=== PATIENT | female | born 1985 | race Caucasian/White ===

== ENCOUNTER → 2018-01-26 11:50 | Outpatient (CLI) | payer OTHER, SELFPAY ==
[2018-01-26 13:30] LABS: TSH w/ Reflex to FT4 < 0.02 uIU/mL (0.47-4.68)
[2018-01-26 15:01] LABS: Free T4, Direct Thyroxine 2.62 ng/dL (0.78-2.19)
== END ==
PROVIDERS: PCP Family Medicine; Visit Provider Registered Nurse
DX: E03.9 Hypothyroidism, unspecified (principal)
CPT/HCPCS: 36415; 84439; 84443

== ENCOUNTER → 2018-03-24 09:31 | Outpatient (CLI) | payer OTHER, SELFPAY ==
[2018-03-24 13:28] LABS: Thyroid Stimulating Hormone < 0.02 uIU/mL (0.47-4.68)
== END ==
PROVIDERS: PCP Family Medicine; Visit Provider Registered Nurse
DX: E03.9 Hypothyroidism, unspecified (principal)
CPT/HCPCS: 36415; 84443

== ENCOUNTER → 2018-05-30 13:53 | Outpatient (CLI) | payer OTHER, SELFPAY ==
[2018-05-30 17:41] LABS: Thyroid Stimulating Hormone 3.96 uIU/mL (0.47-4.68)
== END ==
PROVIDERS: Registered Nurse; PCP Family Medicine; Visit Provider Family Medicine
DX: E03.9 Hypothyroidism, unspecified (principal)
CPT/HCPCS: 36415; 84443

== ENCOUNTER → 2020-03-24 11:28 | Outpatient (CLI) | payer OTHER, SELFPAY ==
[2020-03-24 12:35] LABS: Alanine Aminotransferase 19 IU/L (<35); Albumin 4.3 g/dL (3.5-5.0); Albumin Globulin Ratio 1.5 (1.0-2.8); Alkaline Phosphatase 51 U/L (38-126); Aspartate Aminotransferase 27 IU/L (14-36); BUN Creatinine Ratio 21.5 (6-22); Bilirubin Total 0.5 mg/dL (0.2-1.3); Blood Urea Nitrogen 17 mg/dL (7-17); Calcium 9.1 mg/dL (8.4-10.2); Carbon Dioxide 30 mmol/L (22-32); Chloride 102 mmol/L (98-107); Cholesterol 150 mg/dL (140-199); Estimated Glomerular Filt Rate > 60.0 mL/min (>60); Globulin 2.8 g/dL (1.7-4.1); Glucose 98 mg/dL (70-100); HDL Cholesterol 79 mg/dL (40-60); HEMOLYSIS < 15 (0-50); LDL Cholesterol Calculated 55 mg/dL (<100); Potassium 3.7 mmol/L (3.4-5.1); Sodium 135 mmol/L (137-145); Total Protein 7.1 g/dL (6.3-8.2); Triglycerides 80 mg/dL (35-150)
[2020-03-24 12:48] LABS: Follicle Stimulating Hormone 5.96 mIU/mL
[2020-03-24 12:52] LABS: Free T4, Direct Thyroxine 0.96 ng/dL (0.78-2.19)
[2020-03-24 13:06] LABS: Thyroid Stimulating Hormone 6.54 uIU/mL (0.47-4.68)
[2020-03-27 08:36] LABS: Estrogen 257 pg/mL (.)
== END ==
PROVIDERS: PCP Family Medicine; Referring Provider Family Medicine; Visit Provider Family Medicine
DX: E03.9 Hypothyroidism, unspecified (principal); N92.6 Irregular menstruation, unspecified; Z13.220 Encounter for screening for lipoid disorders; Z76.89 Persons encountering health services in other specified circumstances
CPT/HCPCS: 36415; 80053; 80061; 82672; 83001; 83002; 84439; 84443

== ENCOUNTER → 2020-05-27 17:00 | Outpatient (CLI) | payer OTHER, SELFPAY ==
[2020-05-27 18:41] LABS: Free T4, Direct Thyroxine 1.05 ng/dL (0.78-2.19)
[2020-05-27 18:56] LABS: Thyroid Stimulating Hormone 2.89 uIU/mL (0.47-4.68)
== END ==
PROVIDERS: PCP Family Medicine; Referring Provider Obstetrics & Gynecology; Visit Provider Obstetrics & Gynecology
DX: E03.9 Hypothyroidism, unspecified (principal)
CPT/HCPCS: 36415; 84439; 84443

== ENCOUNTER 2020-07-28 12:02 | Emergency (ER) | payer OTHER, SELFPAY ==
[2020-07-28 12:05] VITALS: BP 128/80; PULSE 72; RESP 18; TEMP 36.9; O2SAT 97; BMI 23.6
--- NOTE | 2020-07-28 12:09 | DI.RAD.S_ITS ---
PROCEDURE: XR CHEST 1V INDICATIONS: chest pain TECHNIQUE: One view of the chest was acquired. COMPARISON: None. FINDINGS: Surgical changes and devices: None. Lungs and pleura: Lungs are clear. No pleural effusions or pneumothorax. Mediastinum: Mediastinal contours appear normal. Heart size is normal. Bones and chest wall: No suspicious bony lesions. Overlying soft tissues appear unremarkable. IMPRESSION: Portable chest within normal limits. Dictated by: Nick Montemayor M.D. on 07/28/2020 at 11:20 Approved by: Nick Montemayor M.D. on 07/28/2020 at 11:20
[2020-07-28 12:28] VITALS: PULSE 64; O2SAT 100
[2020-07-28 12:30] VITALS: BP 99/63; PULSE 57; O2SAT 100
[2020-07-28 13:03] LABS: INR 1.1 (0.9-1.3); Prothrombin Time 12.1 SECONDS (10.1-12.7)
[2020-07-28 13:06] LABS: PTT Partial Thromboplastin Tim 31 SECONDS (26.4-36.2)
[2020-07-28 13:07] LABS: Alanine Aminotransferase 19 IU/L (<35); Albumin 4.5 g/dL (3.5-5.0); Albumin Globulin Ratio 1.4 (1.0-2.8); Alkaline Phosphatase 54 U/L (38-126); Aspartate Aminotransferase 31 IU/L (14-36); BUN Creatinine Ratio 19.3 (6-22); Bilirubin Total 0.5 mg/dL (0.2-1.3); Blood Urea Nitrogen 16 mg/dL (7-17); Calcium 9.9 mg/dL (8.4-10.2); Carbon Dioxide 27 mmol/L (22-32); Chloride 102 mmol/L (98-107); Creatine Kinase 116 U/L (30-135); Estimated Glomerular Filt Rate > 60.0 mL/min (>60); Globulin 3.2 g/dL (1.7-4.1); Glucose 101 mg/dL (70-100); HEMOLYSIS < 15 (0-50); Lipase 50 U/L (23-300); Magnesium 2.1 mg/dL (1.6-2.3); Potassium 4.2 mmol/L (3.4-5.1); Sodium 136 mmol/L (137-145); Total Protein 7.7 g/dL (6.3-8.2)
[2020-07-28 13:10] LABS: Add Manual Diff / Slide Review NO; Basophils Absolute Auto 0 /uL (0-100); Basophils Percent Auto 0.4 % (0-2); Eosinophils Absolute Auto 100 /uL (0-450); Eosinophils Percent Auto 2.5 % (2-4); Hematocrit 41.9 % (36-46); Hemoglobin 14.1 g/dL (12.0-16.0); Lymphocytes Absolute Auto 1300 /uL (1100-4500); Lymphocytes Percent Auto 30.4 % (25-40); Mean Corpuscular HGB Conc 33.7 % (30-36); Mean Corpuscular Hemoglobin 31.4 PG (26-34); Mean Corpuscular Volume 93.1 fL (80-100); Monocytes Absolute Auto 300 /uL (0-900); Monocytes Percent Auto 7.7 % (3-14); Neutrophils Absolute Auto 2500 /uL (1500-7000); Platelet Count 226 X10^3/uL (150-400); Red Cell Distribution Width 12.6 % (11.6-14.8); White Blood Cell Count 4.2 X10^3/uL (4.5-11.0)
[2020-07-28 13:19] LABS: Troponin I < 0.012 ng/mL (0.01-0.034)
[2020-07-28 13:22] LABS: Creatine Kinase MB 1.15 ng/mL (<2.37)
[2020-07-28 13:38] LABS: TSH w/ Reflex to FT4 1.91 uIU/mL (0.47-4.68)
[2020-07-28 13:49] LABS: D Dimer < 200 ng/mL (<230)
[2020-07-28 13:57] VITALS: BP 103/62; PULSE 60; RESP 16; O2SAT 99
--- NOTE | 2020-07-28 14:46 | ED_ITS ---
HPI - Chest Pain <KIMBER Meza - Last Filed: 07/28/20 22:05> General Chief Complaint: Chest Pain Stated Complaint: FAINT, HEAVINESS IN CHEST Time Seen by Provider: 07/28/20 13:10 Source: patient Mode of arrival: Ambulatory Limitations: no limitations History of Present Illness HPI narrative: This is a pleasant 34 year female, nonsmoker, has past medical history significant for hypothyroidism, anxiety presents to ED with chief complain of heart issues. Patient reports she has been feeling heart fluttering and feeling like passing out with chest heaviness and some shortn ess of breath. This symptoms occur occasionally at home and easily when she is sitting on a car driving. Patient states does not have chest pain with this symptoms. Patient has anxiety and recently start on escitalopram 10mg daily last 2 weeks. Patient denies recent surgery, prolonged bed rest, taking hormone replacement. 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 Mother has history of DVT which caused pulmonary embolism. Patient reports she usually runs in low blood pressure and is concerned for abnormal glucose level. Patient states her father and uncle had cardiac bypass surgery in 60's but they were heavy drinker and smoker. LMP [address] Edouard. Related Data Home Medications Medication Instructions Recorded Confirmed albuterol sulfate 90 mcg/actuation 1 puff INHALATION Q6H PRN 01/26/18 07/08/20 aerosol inhaler cetirizine 10 mg tablet 10 mg PO DAILY 01/26/18 07/08/20 Previous Rx's Medication Instructions Recorded clindamycin phosphate 1 % lotion 1 applic TOPICAL BID #60 ml 03/24/20 epinephrine 0.3 mg/0.3 mL 0.3 mg IM ONCE #2 ea 03/24/20 injection, auto-injector levothyroxine 50 mcg tablet 50 mcg PO DAILY #90 tab 03/24/20 oxyquinoline 0.025 %-sodium lauryl 1 ea VAGINAL DAILY #113.4 g 07/08/20 sulfate 0.01 % vaginal gel escitalopram oxalate 10 mg tablet 10 mg PO DAILY #30 tab 07/15/20 Allergies Allergy/AdvReac Type Severity Reaction Status Date / Time walnut Allergy Severe anaphylaxis Verified 07/08/20 16:29 Review of Systems <KIMBER Meza - Last Filed: 07/28/20 22:05> Review of Systems Narrative: General: Denies fever, chills, fatigue, malaise, sweats. HEENT: Denies sinus pain, ear pain, sore throat, difficulty swallowing, dizziness. Respiratory: Denies dyspnea, cough, wheezing, hemoptysis, sputum. Cardiovascular: Denies chest pain, palpitations, orthopnea, edema. Gastrointestinal: Denies nausea, vomiting, abdominal pain, diarrhea, constipation, melena. : Denies dysuria, frequency, incontinence, hematuria, urinary retention. Musculoskeletal: Denies weakness, joint pain or bony pain. Skin: Denies rash, skin lesions, or other. Neurologic: Denies weakness, headache, numbness, change in speech, confusion, seizures, incoordination. Psychiatric: No concerning psychosocial issues. 12-point review of systems is negative except for those stated above. Patient History <KIMBER Meza - Last Filed: 07/28/20 22:05> Medical History Abnormal Pap smear of cervix (2003) Acne (1996) Acne vulgaris Anxiety (2010) Asthma (1989) Central retinal vein occlusion (2012) Chicken pox (1988) Fractures (1989) Hayfever (1989) HPV (human papilloma virus) infection (2003) Hypothyroidism Plantar warts (1997) Surgical History Anesthesia Encounter for cosmetic procedure (2003) History of open reduction and internal fixation (ORIF) procedure (1990) History of tonsillectomy (2000) Status post delivery (01/16/13) Family History Brother No problems noted. Brother No problems noted. Father No problems noted. Mother No problems noted. Social History Smoking Status: Never smoker alcohol intake: never substance use type: does not use Smoking Status: Never smoker Substance Use Type: does not use Exam <KIMBER Meza - Last Filed: 07/28/20 22:05> Narrative Exam Narrative: GEN: Alert, oriented x 3, well appearing and nourished, and in no acute distress. Head: Normal cephalic, atraumatic. No scalp or temporal tenderness, palpable mass or rash. EYES: Pupils are equal, round, and reactive to light and accommodation. Extraocular muscles are intact bilaterally. There is no subconjunctival h emorrhage, exudate and sclera non-icteric. ENT: Hearing grossly intact. Airway patent. Neck: Trachea in midline. No JVD, non-tender without lymphadenopathy. No masses or thyroid megaly. Supple, non-tender and no meningeal signs. CARDIAC: Normal regular rate and rhythm without murmurs, gallops, or rubs. No chest wall tenderness. No peripheral edema, cyanosis or pallor. Capillary refill is less than 2 seconds. RESPIRATORY: Lungs are clear to auscultate bilaterally. No cough, wheezes, r ales, or rhonchi. No stridor, respiratory distress, increase work of breathing, or accessary muscle used. ABD: Abdomen soft, nontender and non-distended. No guarding or rebound tenderness to palpate. Bowel sounds are normal in all 4 quadrants. There is no palpable masses or organomegaly. EXT: Full painless ROM of all extremities with no loss of sensation, strength, effusion or edema. SKIN: Warm, dry, normal color for patient. No erythema, lesions or rash over visible areas. BACK: Nontender without deformity or crepitance. No flank tenderness. NEUROLOGICAL: Alert and oriented to place, time and person. Sensation and motor function intact bilaterally. No facial droops, dysphasia. PSYCHIATRIC: Good judgement and reason, without hallucinations, abnormal affect or abnormal behaviors during the examination. Patient is not suicidal. Initial Vital Signs Initial Vital Signs: Vital Signs Temperature 98.4 F 07/28/20 12:05 Pulse Rate 72 07/28/20 12:05 Respiratory Rate 18 07/28/20 12:05 Blood Pressure 128/80 07/28/20 12:05 Pulse Oximetry 97 07/28/20 12:05 <Margaret Manrique, DO - Last Filed: 08/05/20 02:29> Initial Vital Signs Initial Vital Signs: Vital Signs Temperature 98.4 F 07/28/20 12:05 Pulse Rate 72 07/28/20 12:05 Respiratory Rate 18 07/28/20 12:05 Blood Pressure 128/80 07/28/20 12:05 Pulse Oximetry 97 07/28/20 12:05 Scores <Israel LopezSULAIMAN castroP - Last Filed: 07/28/20 22:05> GCS [place] coma scale eye opening: Spontaneous [place] coma scale verbal response: Orientated [place] coma scale motor response: Obey commands [place] coma scale total score: 15 HEART Score Heart Score history: Slightly Suspicious Heart Score EKG: Normal Heart Score Age: < 45 years old Heart Score risk factors: No known risk factors Heart Score troponin: < or = to normal limit Heart Score Total: 0 PERC Score Age greater than or equal to 50 years: No Heart rate greater than or equal to 100 bpm: No Room Air O2 Sat less than 95%: No Unilateral leg swelling: No Recent trauma or surgery: No Hemoptysis: No Prior PE or DVT: No Hormone Use: No Total PERC Score: 0 Wells' Criteria for PE Clinical signs and symptoms of DVT: No PE is #1 Dx or equally likely: Yes Heart rate > 100: No Immobilization at least 3 days or surg in previous 4 weeks: No History of PE or DVT: No Hemoptysis: No Malignancy w/Treatment within 6 months or palliative: No Wells' PE Score total: 3 Course <Israel JessicaSULAIMAN castroP - Last Filed: 07/28/20 22:05> Orders Ordered: ED Orders 07/28/20 14:30 Trop I [Troponin I] Stat Vital Signs Vital signs: Vital Signs - 8 hr 07/28/20 13:57 Pulse Rate 60 Respiratory Rate 16 Blood Pressure 103/62 Pulse Oximetry 99 <Margaret Manrique DO - Last Filed: 08/05/20 02:29> Orders Ordered: ED Orders 07/28/20 14:30 Trop I [Troponin I] Stat Vital Signs Vital signs: Vital Signs - 8 hr 07/28/20 13:57 Pulse Rate 60 Respiratory Rate 16 Blood Pressure 103/62 Pulse Oximetry 99 MDM - Chest Pain <Israel LaughlinAlvinaSULAIMAN castroP - Last Filed: 07/28/20 22:05> Differential Diagnosis Differential diagnosis: Likely other (Arrhythmia, hypoglycemia, hypotension, , anxiety, ACS, PE, hyperthyroidism) Medical Records Data Attestation: I reviewed the patient's medical records. Lab Data Attestation: I reviewed the patient's lab results. Result diagrams: 07/28/20 12:21 07/28/20 12:21 Labs: Lab Results 07/28/20 07/28/20 07/28/20 Range/Units 12:21 12:21 12:21 WBC 4.2 L (4.5-11.0) X10^3/uL RBC 4.50 (4.0-5.2) X10^6/uL Hgb 14.1 (12.0-16.0) g/dL Hct 41.9 (36-46) % MCV 93.1 (80-100) fL MCH 31.4 (26-34) PG MCHC 33.7 (30-36) % RDW 12.6 (11.6-14.8) % Plt Count 226 (150-400) X10^3/uL Neut % (Auto) 59.0 (50-75) % Lymph % (Auto) 30.4 (25-40) % [place] % (Auto) 7.7 (3-14) % Eos % (Auto) 2.5 (2-4) % Baso % (Auto) 0.4 (0-2) % Neut # (Auto) 2500 (1988-0414) /uL Lymph # (Auto) 1300 (3202-4576) /uL [place] # (Auto) 300 (0-900) /uL Eos # (Auto) 100 (0-450) /uL Baso # (Auto) 0 (0-100) /uL PT 12.1 (10.1-12.7) SECONDS INR 1.1 (0.9-1.3) APTT 31 (26.4-36.2) SECONDS D-Dimer (<230) ng/mL Sodium 136 L (137-145) mmol/L Potassium 4.2 (3.4-5.1) mmol/L Chloride 102 (98-107) mmol/L Carbon Dioxide 27 (22-32) mmol/L BUN 16 (7-17) mg/dL Creatinine 0.83 (0.52-1.04) mg/dL Estimated GFR > 60.0 (>60) mL/min BUN/Creatinine Ratio 19.3 (6-22) Glucose 101 H (70-100) mg/dL Calcium 9.9 (8.4-10.2) mg/dL Magnesium 2.1 (1.6-2.3) mg/dL Total Bilirubin 0.5 (0.2-1.3) mg/dL AST 31 (14-36) IU/L ALT 19 (<35) IU/L Alkaline Phosphatase 54 (38-126) U/L Total Creatine Kinase 116 (30-135) U/L CK-MB (CK-2) 1.15 (<2.37) ng/mL CK-MB (CK-2) Rel Index 1.0 L (1.5-5.0) % Troponin I < 0.012 (0.01-0.034) ng/mL Total Protein 7.7 (6.3-8.2) g/dL Albumin 4.5 (3.5-5.0) g/dL Globulin 3.2 (1.7-4.1) g/dL Albumin/Globulin Ratio 1.4 (1.0-2.8) Lipase 50 (23-300) U/L TSH (0.47-4.68) uIU/mL 07/28/20 07/28/20 07/28/20 Range/Units 12:21 12:21 14:30 WBC (4.5-11.0) X10^3/uL RBC (4.0-5.2) X10^6/uL Hgb (12.0-16.0) g/dL Hct (36-46) % MCV (80-100) fL MCH (26-34) PG MCHC (30-36) % RDW (11.6-14.8) % Plt Count (150-400) X10^3/uL Neut % (Auto) (50-75) % Lymph % (Auto) (25-40) % [place] % (Auto) (3-14) % Eos % (Auto) (2-4) % Baso % (Auto) (0-2) % Neut # (Auto) (5396-5219) /uL Lymph # (Auto) (0142-4662) /uL [place] # (Auto) (0-900) /uL Eos # (Auto) (0-450) /uL Baso # (Auto) (0-100) /uL PT (10.1-12.7) SECONDS INR (0.9-1.3) APTT (26.4-36.2) SECONDS D-Dimer < 200 (<230) ng/mL Sodium (137-145) mmol/L Potassium (3.4-5.1) mmol/L Chloride (98-107) mmol/L Carbon Dioxide (22-32) mmol/L BUN (7-17) mg/dL Creatinine (0.52-1.04) mg/dL Estimated GFR (>60) mL/min BUN/Creatinine Ratio (6-22) Glucose (70-100) mg/dL Calcium (8.4-10.2) mg/dL Magnesium (1.6-2.3) mg/dL Total Bilirubin (0.2-1.3) mg/dL AST (14-36) IU/L ALT (<35) IU/L Alkaline Phosphatase (38-126) U/L Total Creatine Kinase (30-135) U/L CK-MB (CK-2) (<2.37) ng/mL CK-MB (CK-2) Rel Index (1.5-5.0) % Troponin I < 0.012 (0.01-0.034) ng/mL Total Protein (6.3-8.2) g/dL Albumin (3.5-5.0) g/dL Globulin (1.7-4.1) g/dL Albumin/Globulin Ratio (1.0-2.8) Lipase (23-300) U/L TSH 1.91 (0.47-4.68) uIU/mL Point of Care Testing Test Results Negative Urine Dip Bedside Urine Glucose Negative Bedside Urine Bilirubin - Negative Bedside Urine Ketone - Negative Urine Specific [place] 1.015 Bedside Urine Occult Blood - Negative Bedside Urine pH 6.5 Bedside Urine Protein - Negative Bedside Urine Urobilinogen - Negative Bedside Urine Nitrite - Negative Bedside Urine Leukocytes - Negative Esterase Imaging Data Chest x-ray: Radiologist's Impression: [address] [id number] ReportSigned Patient: Sofie Sal MMR#: [id number]: 1985Acct:[id number]/Sex: 34 / FDate of Service: 07/28/20Loc: EDAccession Number: [id number] Procedure: XR chest 1V Ordering Provider: Margaret Manrique D.O. PROCEDURE: XR CHEST 1V INDICATIONS: chest pain TECHNIQUE: One view of the chest was acquired. COMPARISON: None. FINDINGS: Surgical changes and devices: None. Lungs and pleura: Lungs are clear. No pleural effusions or pneumothorax. Mediastinum: Mediastinal contours appear normal. Heart size is normal. Bones and chest wall: No suspicious bony lesions. Overlying soft tissues appear unremarkable. IMPRESSION: Portable chest within normal limits. Dictated by: Nick Montemayor M.D. on 07/28/2020 at 11:20 Approved by: Nick Montemayor M.D. on 07/28/2020 at 11:20 ECG Data Attestation: I personally reviewed and interpreted this ECG as follows: Prior ECG tracings: not available for review Interpretation: Normal sinus rhythm rate at 66. Normal [place]. NE interval 134, QRS duration 92, QT/QTC 420/440. Nonspecific ST abnormality. MDM Narrative Medical decision making narrative: This is a 34 year female who has a history significant for hypothyroidism, anxiety presents to ED chief complain of palpitations, feeling like passing out for briefly with mild breath which occurs mostly when she is stopped at traffic light in the car. EKG is normal sinus rhythm rate at [address] elevation. HEART score 0, Well's criteria for PE score 3, PERC score 0. Patient has a family history of DVT and pulmonary embolism in mother, patient has a history of central retinal vein occlusion and d dimer was ordered for screening which was negative. 2 sets of cardiac enzymes were negative. CXR was negative for acute findings. No indications for anemia. Normal coag test result. chemistry test was unremarkable. TSH within normal. Urine test was negative. Vital signs within normal limits without tachycardia. Assuring findings were discussed with the patient and advised to follow up with primary care physician further evaluation possibly with considering incident/Holter monitor along return precautions and patient verbalized understanding and agreement with the treatment plan. <Margaret Manrique, DO - Last Filed: 08/05/20 02:29> Lab Data Labs: Lab Results 07/28/20 07/28/20 07/28/20 Range/Units 12:21 12:21 12:21 WBC 4.2 L (4.5-11.0) X10^3/uL RBC 4.50 (4.0-5.2) X10^6/uL Hgb 14.1 (12.0-16.0) g/dL Hct 41.9 (36-46) % MCV 93.1 (80-100) fL MCH 31.4 (26-34) PG MCHC 33.7 (30-36) % RDW 12.6 (11.6-14.8) % Plt Count 226 (150-400) X10^3/uL Neut % (Auto) 59.0 (50-75) % Lymph % (Auto) 30.4 (25-40) % [place] % (Auto) 7.7 (3-14) % Eos % (Auto) 2.5 (2-4) % Baso % (Auto) 0.4 (0-2) % Neut # (Auto) 2500 (7913-1423) /uL Lymph # (Auto) 1300 (4460-8844) /uL [place] # (Auto) 300 (0-900) /uL Eos # (Auto) 100 (0-450) /uL Baso # (Auto) 0 (0-100) /uL PT 12.1 (10.1-12.7) SECONDS INR 1.1 (0.9-1.3) APTT 31 (26.4-36.2) SECONDS D-Dimer (<230) ng/mL Sodium 136 L (137-145) mmol/L Potassium 4.2 (3.4-5.1) mmol/L Chloride 102 (98-107) mmol/L Carbon Dioxide 27 (22-32) mmol/L BUN 16 (7-17) mg/dL Creatinine 0.83 (0.52-1.04) mg/dL Estimated GFR > 60.0 (>60) mL/min BUN/Creatinine Ratio 19.3 (6-22) Glucose 101 H (70-100) mg/dL Calcium 9.9 (8.4-10.2) mg/dL Magnesium 2.1 (1.6-2.3) mg/dL Total Bilirubin 0.5 (0.2-1.3) mg/dL AST 31 (14-36) IU/L ALT 19 (<35) IU/L Alkaline Phosphatase 54 (38-126) U/L Total Creatine Kinase 116 (30-135) U/L CK-MB (CK-2) 1.15 (<2.37) ng/mL CK-MB (CK-2) Rel Index 1.0 L (1.5-5.0) % Troponin I < 0.012 (0.01-0.034) ng/mL Total Protein 7.7 (6.3-8.2) g/dL Albumin 4.5 (3.5-5.0) g/dL Globulin 3.2 (1.7-4.1) g/dL Albumin/Globulin Ratio 1.4 (1.0-2.8) Lipase 50 (23-300) U/L TSH (0.47-4.68) uIU/mL 07/28/20 07/28/20 07/28/20 Range/Units 12:21 12:21 14:30 WBC (4.5-11.0) X10^3/uL RBC (4.0-5.2) X10^6/uL Hgb (12.0-16.0) g/dL Hct (36-46) % MCV (80-100) fL MCH (26-34) PG MCHC (30-36) % RDW (11.6-14.8) % Plt Count (150-400) X10^3/uL Neut % (Auto) (50-75) % Lymph % (Auto) (25-40) % [place] % (Auto) (3-14) % Eos % (Auto) (2-4) % Baso % (Auto) (0-2) % Neut # (Auto) (2562-4151) /uL Lymph # (Auto) (4230-1854) /uL [place] # (Auto) (0-900) /uL Eos # (Auto) (0-450) /uL Baso # (Auto) (0-100) /uL PT (10.1-12.7) SECONDS INR (0.9-1.3) APTT (26.4-36.2) SECONDS D-Dimer < 200 (<230) ng/mL Sodium (137-145) mmol/L Potassium (3.4-5.1) mmol/L Chloride (98-107) mmol/L Carbon Dioxide (22-32) mmol/L BUN (7-17) mg/dL Creatinine (0.52-1.04) mg/dL Estimated GFR (>60) mL/min BUN/Creatinine Ratio (6-22) Glucose (70-100) mg/dL Calcium (8.4-10.2) mg/dL Magnesium (1.6-2.3) mg/dL Total Bilirubin (0.2-1.3) mg/dL AST (14-36) IU/L ALT (<35) IU/L Alkaline Phosphatase (38-126) U/L Total Creatine Kinase (30-135) U/L CK-MB (CK-2) (<2.37) ng/mL CK-MB (CK-2) Rel Index (1.5-5.0) % Troponin I < 0.012 (0.01-0.034) ng/mL Total Protein (6.3-8.2) g/dL Albumin (3.5-5.0) g/dL Globulin (1.7-4.1) g/dL Albumin/Globulin Ratio (1.0-2.8) Lipase (23-300) U/L TSH 1.91 (0.47-4.68) uIU/mL Point of Care Testing Test Results Negative Urine Dip Bedside Urine Glucose Negative Bedside Urine Bilirubin - Negative Bedside Urine Ketone - Negative Urine Specific [place] 1.015 Bedside Urine Occult Blood - Negative Bedside Urine pH 6.5 Bedside Urine Protein - Negative Bedside Urine Urobilinogen - Negative Bedside Urine Nitrite - Negative Bedside Urine Leukocytes - Negative Esterase Discharge Plan Departure Patient Disposition: Home Clinical Impression: Near syncope Instructions: DI for Syncope in Adults (Fainting) Activity Restrictions/Additional Instructions: You have been diagnosed with [near-syncope. Today's labs, chest x-ray, EKG tests are assuring.]. What to do: *Take your medications as directed. *Follow up with your primary care provider in 2-3 days, call for an appointment. Let them know you were seen in the ED and that we asked you to be seen in follow up. If your symptoms persists, may require Holter monitor. *Return to ED if you have any new, worsening, or concerning symptoms, such as [chest pain, breathing difficulty, worsening symptoms, or any acute concerns]. Prescriptions: No Action levothyroxine 50 mcg tablet 50 mcg PO DAILY Qty: 90 RF: 1 escitalopram oxalate [Lexapro] 10 mg tablet 10 mg PO DAILY Qty: 30 RF: 2 cetirizine [Zyrtec] 10 mg tablet 10 mg PO DAILY RF: 0 albuterol sulfate 90 mcg/actuation HFA aerosol inhaler 1 puff INHALATION Q6H PRNRF: 0 epinephrine [EpiPen] 0.3 mg/0.3 mL auto-injector 0.3 mg IM ONCE Qty: 2 RF: 1 clindamycin phosphate [Cleocin T] 1 % lotion 1 applic topical BID Qty: 60 RF: 2 oxyquinoline-sod.lauryl sulfat 0.025-0.01 % gel 1 ea vaginal DAILY Qty: 113.4 RF: 3 Referrals: Kyle Cantrell DO [Primary Care Provider] - <Margaret Manrique DO - Last Filed: 08/05/20 02:29> Cosign ED Attending Jaisonature Attestation: I was immediately available in the department for consultation. Documentation has been reviewed.
[2020-07-28 15:04] LABS: Troponin I < 0.012 ng/mL (0.01-0.034)
== END 2020-07-28 15:22 | disposition home or self-care (01) ==
PROVIDERS: Emergency Medicine; Emergency Provider Nurse Practitioner Family; PCP Family Medicine
DX: R55 Syncope and collapse (principal); R07.9 Chest pain, unspecified
CPT/HCPCS: 36415; 71045; 80053; 81003; 81025; 82550; 82553; 83690; 83735; 84443; 84484; 85025; 85379; 85610; 85730; 93005; 99284

== ENCOUNTER → 2020-09-03 09:54 | Outpatient (CLI) | payer OTHER, SELFPAY ==
--- NOTE | 2020-09-30 08:48 | PM.CARDMON.1 ---
Thermostatic Controls Supervisor Report Referral & Results Date Patient Seen: 09/03/20 Requesting provider: Kelli Cote Indication: Syncope Duration of monitoring (days): 6 Diary information: There were 2 patient triggered events associated with sinus rhythm only Data: Minimum heart rate identified was 53 beats per minute at 07:07 on 09/05/2020 Maximum heart rate was 161 beats per minute at 17:03 on 09/08/2020 Less than 1% of identified beats were ventricular or supraventricular ectopic in origin, which would classify them as rare. 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 Patient reported event associated with sinus rhythm
== END ==
PROVIDERS: PCP Registered Nurse; Referring Provider Registered Nurse; Visit Provider Registered Nurse
DX: R55 Syncope and collapse (principal)
CPT/HCPCS: 93242; 93244

== ENCOUNTER → 2021-03-06 10:46 | Outpatient (CLI) | payer OTHER, SELFPAY ==
[2021-03-06 13:44] LABS: Thyroid Stimulating Hormone 3.81 uIU/mL (0.47-4.68)
== END ==
PROVIDERS: PCP Registered Nurse; Referring Provider Registered Nurse; Visit Provider Registered Nurse
DX: E03.9 Hypothyroidism, unspecified (principal)
CPT/HCPCS: 36415; 84443

== ENCOUNTER → 2021-12-10 17:09 | Outpatient (CLI) | payer OTHER, SELFPAY ==
[2021-12-10 18:17] LABS: Alanine Aminotransferase 14 IU/L (<35); Albumin 4.6 g/dL (3.5-5.0); Albumin Globulin Ratio 1.3 (1.0-2.8); Alkaline Phosphatase 61 U/L (38-126); Aspartate Aminotransferase 23 IU/L (14-36); BUN Creatinine Ratio 23.2 (6-22); Bilirubin Total 0.4 mg/dL (0.2-1.3); Blood Urea Nitrogen 23 mg/dL (7-17); Calcium 9.3 mg/dL (8.4-10.2); Carbon Dioxide 25 mmol/L (22-32); Estimated Glomerular Filt Rate > 60 mL/min (>60); Globulin 3.5 g/dL (1.7-4.1); Glucose 94 mg/dL (70-100); HEMOLYSIS < 15 (0-50); Total Protein 8.1 g/dL (6.3-8.2)
[2021-12-10 18:25] LABS: Add Manual Diff / Slide Review NO; Basophils Absolute Auto 0 /uL (0-100); Basophils Percent Auto 0.6 % (0-2); Eosinophils Absolute Auto 200 /uL (0-450); Eosinophils Percent Auto 2.5 % (2-4); Hematocrit 38.5 % (36-46); Hemoglobin 13.2 g/dL (12.0-16.0); Lymphocytes Absolute Auto 1700 /uL (1100-4500); Lymphocytes Percent Auto 26.9 % (25-40); Mean Corpuscular HGB Conc 34.3 % (30-36); Mean Corpuscular Volume 90.5 fL (80-100); Monocytes Absolute Auto 500 /uL (0-900); Monocytes Percent Auto 7.5 % (3-14); Neutrophils Absolute Auto 4000 /uL (1500-7000); Neutrophils Percent Auto 62.5 % (50-75); Platelet Count 234 X10^3/uL (150-400); Red Blood Cell Count 4.26 X10^6/uL (4.0-5.2); Red Cell Distribution Width 13.1 % (11.6-14.8); White Blood Cell Count 6.4 X10^3/uL (4.5-11.0)
[2021-12-10 18:26] LABS: Chloride 102 mmol/L (98-107); Potassium 4.2 mmol/L (3.4-5.1); Sodium 137 mmol/L (137-145)
[2021-12-10 18:35] LABS: Free T4, Direct Thyroxine 1.07 ng/dL (0.78-2.19)
[2021-12-10 18:49] LABS: Thyroid Stimulating Hormone 3.48 uIU/mL (0.47-4.68)
== END ==
PROVIDERS: PCP Family Medicine; Referring Provider Family Medicine; Visit Provider Family Medicine
DX: E03.9 Hypothyroidism, unspecified (principal); F41.8 Other specified anxiety disorders; L70.0 Acne vulgaris
CPT/HCPCS: 36415; 80053; 84439; 84443; 85025

== ENCOUNTER → 2022-10-18 08:48 | Outpatient (CLI) | payer OTHER, SELFPAY ==
--- NOTE | 2022-10-18 08:49 | DI.US.S_ITS ---
PROCEDURE: US PELVIC COMPLETE INDICATIONS: VAGINAL BLEEDING X 41 DAYS TECHNIQUE: Real-time scanning was performed of the pelvic organs, with image documentation. Additional endovaginal scanning was necessary due to incomplete visualization of the adnexal and endometrial structures by transabdominal scanning. COMPARISON: [facility], US, US PELVIC COMPLETE, 07/08/2020, 16:42. FINDINGS: Uterus: Uterus is retroverted and normal in size at 9.9 x 6.8 x 5.6 cm. The myometrium is heterogeneous, with small echogenic foci within the junctional zone. The endometrium measures 13 mm combined thickness. Slightly heterogeneous endometrium echogenicity. Ovaries: The right ovary measures 4.6 x 2.6 x 2.8 cm, with a calculated ovarian volume of 18 cc. The left ovary measures 2.3 x 1.5 x 1.2 cm, with a calculated ovarian volume of 2 cc. The ovaries have a normal sonographic appearance. Less than 12 follicles can be seen in each ovary. No adnexal masses are seen. Simple appearing right ovarian cystic lesion measuring 3.3 centimeters. Other: No pathologic free abdominal or pelvic fluid. IMPRESSION: Slightly heterogeneous endometrium, specifically with echogenic foci within the junctional zone. Findings suggestive of adenomyosis. Consider confirmation with MRI (gynecologic protocol). Slightly heterogeneous endometrium. Endometrial polyp not excluded. We strive to produce accurate, complete, and clear reports of imaging services. To assist us in improving patient care, this report was composed using standard report templates and voice recognition software. Therefore, it may contain abnormal punctuation, insertions and/or omissions. Occasional wrong-word or sound-alike substitutions may occur. Though we review the report and make efforts to correct it, we do recommend that the report be read carefully in proper context to recognize any text inaccuracies. Dictated by: Anurag Ho M.D. on 10/18/2022 at 11:19 Approved by: Anurag Ho M.D. on 10/18/2022 at 11:23
[2022-10-18 11:40] LABS: Free T4, Direct Thyroxine 0.99 ng/dL (0.78-2.19)
[2022-10-18 11:54] LABS: Thyroid Stimulating Hormone 5.85 uIU/mL (0.47-4.68)
== END ==
PROVIDERS: PCP Family Medicine; Referring Provider Obstetrics & Gynecology; Visit Provider Obstetrics & Gynecology
DX: N93.9 Abnormal uterine and vaginal bleeding, unspecified (principal); N83.202 Unspecified ovarian cyst, left side; E03.9 Hypothyroidism, unspecified
CPT/HCPCS: 36415; 76830; 76856; 84439; 84443

== ENCOUNTER → 2023-05-17 09:58 | Outpatient (CLI) | payer OTHER, SELFPAY ==
[2023-05-17 10:38] LABS: Add Manual Diff / Slide Review NO; Basophils Absolute Auto 0 /uL (0-100); Basophils Percent Auto 0.7 % (0-2); Eosinophils Absolute Auto 100 /uL (0-450); Eosinophils Percent Auto 3.5 % (2-4); Hematocrit 38.1 % (36-46); Hemoglobin 12.9 g/dL (12.0-16.0); Lymphocytes Absolute Auto 1500 /uL (1100-4500); Lymphocytes Percent Auto 40.1 % (25-40); Mean Corpuscular HGB Conc 33.9 % (30-36); Mean Corpuscular Hemoglobin 31.7 PG (26-34); Mean Corpuscular Volume 93.6 fL (80-100); Monocytes Absolute Auto 300 /uL (0-900); Monocytes Percent Auto 8.9 % (3-14); Neutrophils Absolute Auto 1800 /uL (1500-7000); Neutrophils Percent Auto 46.8 % (50-75); Platelet Count 247 X10^3/uL (150-400); Red Blood Cell Count 4.07 X10^6/uL (4.0-5.2); Red Cell Distribution Width 13.6 % (11.6-14.8); White Blood Cell Count 3.9 X10^3/uL (4.5-11.0)
[2023-05-17 10:57] LABS: Alanine Aminotransferase 18 IU/L (<35); Albumin 4.1 g/dL (3.5-5.0); Albumin Globulin Ratio 1.4 (1.0-2.8); Alkaline Phosphatase 54 U/L (38-126); Aspartate Aminotransferase 25 IU/L (14-36); Bilirubin Total 0.7 mg/dL (0.2-1.3); Blood Urea Nitrogen 13 mg/dL (7-17); Calcium 9.4 mg/dL (8.4-10.2); Carbon Dioxide 27 mmol/L (22-32); Chloride 106 mmol/L (98-107); Cholesterol 176 mg/dL (140-199); Estimated Glomerular Filt Rate > 60 mL/min (>60); Glucose 97 mg/dL (70-100); HDL Cholesterol 53 mg/dL (40-60); HEMOLYSIS < 15 (0-50); Iron 99 ug/dL (37-170); LDL Cholesterol Calculated 94 mg/dL (<100); Potassium 4.1 mmol/L (3.4-5.1); Sodium 136 mmol/L (137-145); Total Protein 7.1 g/dL (6.3-8.2); Triglycerides 145 mg/dL (35-150)
[2023-05-17 11:08] LABS: Percent Iron Saturation 34 % (15-50); Total Iron Binding Capacity 293 ug/dL (265-497); Transferrin 239 mg/dL (206-381)
[2023-05-17 11:14] LABS: Free T4, Direct Thyroxine 1.23 ng/dL (0.78-2.19)
[2023-05-17 11:28] LABS: Thyroid Stimulating Hormone 2.23 uIU/mL (0.47-4.68)
[2023-05-17 11:46] LABS: Vitamin B12 385 pg/mL (239-931)
== END ==
PROVIDERS: PCP Family Medicine; Referring Provider Family Medicine; Visit Provider Family Medicine
DX: Z00.00 Encounter for general adult medical examination without abnormal findings (principal); N92.1 Excessive and frequent menstruation with irregular cycle; F41.8 Other specified anxiety disorders; E03.9 Hypothyroidism, unspecified
CPT/HCPCS: 36415; 80053; 80061; 82607; 83540; 83550; 84439; 84443; 85025